=== PATIENT | female | born 1980 | race Caucasian/White ===

== ENCOUNTER 2017-05-08 17:49 | Emergency (ER) | payer SELFPAY ==
[2017-05-08] MEDS ORDERED: OXYCODONE-ACETAMINOPHEN 5-325 MG TABLET PO ONE (18:33)
--- NOTE | 2017-05-08 18:34 | ER Document Report ---
HPI - HPI Patient complains to provider of: Ankle injury Onset: This afternoon Onset/Duration: Sudden Quality of pain: Sharp Pain Level: 4 Context: Patient states that she was walking, slipped on wet grass and rolled her foot and ankle. Patient complains of left lateral ankle pain that radiates down into her foot. Associated Symptoms: Other - Left ankle and foot pain. denies: Vomiting Exacerbated by: Standing, Movement, Walking Relieved by: Denies Similar symptoms previously: No Recently seen / treated by doctor: No - ROS ROS below otherwise negative: Yes Systems Reviewed and Negative: Yes All other systems reviewed and negative - REPRODUCTIVE Reproductive: DENIES: : - MUSCULOSKELETAL Musculoskeletal: REPORTS: Extremity pain, Swelling - DERM Skin Color: Normal Skin Problems: None Past Medical History - General Information source: Patient - Social History Smoking Status: Current Every Day Smoker Occupation: None Lives with: Family Family History: Reviewed & Not Pertinent, CAD, Other - Bipolar disorder Patient has suicidal ideation: No Patient has homicidal ideation: No Renal/ Medical History: Denies: Hx Peritoneal Dialysis Psychiatric Medical History: Reports: Hx Anxiety, Hx Bipolar Disorder, Hx Post Traumatic Stress Disorder Surgical Hx: Negative - Immunizations Hx Diphtheria, Pertussis, Tetanus Vaccination: Yes Vertical Provider Document - CONSTITUTIONAL Agree With Documented VS: Yes Exam Limitations: No Limitations General Appearance: WD/WN, No Apparent Distress - INFECTION CONTROL TRAVEL OUTSIDE OF THE [place] IN LAST 30 DAYS: No - HEENT HEENT: Atraumatic, Normocephalic - NECK Neck: Normal Inspection - RESPIRATORY Respiratory: No Respiratory Distress O2 Sat by Pulse Oximetry: 99 - CARDIOVASCULAR Pulses: Normal: Posterior tibial, Dorsalis pedis - BACK Back: Normal Inspection - MUSCULOSKELETAL/EXTREMETIES Musculoskeletal/Extremeties: MAEW, Tender - Left ankle tenderness over lateral malleolar area with 1+ edema, left midfoot tenderness. negative: Eccymosis Notes: Normal Edmond squeeze test - NEURO Level of Consciousness: Awake, Alert, Appropriate Motor/Sensory: No Motor Deficit - DERM Integumentary: Warm, Dry, No Rash Course - Vital Signs Vital signs: Temp Pulse Resp BP Pulse Ox 97.9 F 101 H 16 105/89 H 99 05/08/17 18:03 05/08/17 18:03 05/08/17 18:03 05/08/17 18:03 05/08/17 18:03 - Diagnostic Test Radiology reviewed: Reports reviewed Procedures - Immobilization Left Ankle Pre-Proc Neuro Vasc Exam: Normal Immobilizer type: Ankle stirrup Performed by: PCT Post-Proc Neuro Vasc Exam: Normal Alignment checked and good: Yes Discharge - Discharge Clinical Impression: Left ankle sprain Qualifiers: Encounter type: initial encounter Involved ligament of ankle: unspecified ligament Qualified Code(s): S93.402A - Sprain of unspecified ligament of left ankle, initial encounter Foot sprain Qualifiers: Encounter type: initial encounter Laterality: left Qualified Code(s): S93.602A - Unspecified sprain of left foot, initial encounter Condition: Stable Disposition: HOME, SELF-CARE Instructions: Ice Packs ([facility]), Oral Narcotic Medication ([facility]), Sprain ([facility]), Sprained Ankle ([facility]) Additional Instructions: Return immediately for any new or worsening symptoms Followup with your primary care provider, call tomorrow to make a followup appointment Weightbearing as tolerated Follow-up with orthopedic doctor for any continued pain or problems Prescriptions: Naproxen [Naprosyn 250 Nmg Tablet] 1 tab PO BID #14 tablet Oxycodone HCl/Acetaminophen [Percocet 5-325 mg Tablet] 1 tab PO ASDIR PRN #10 tablet PRN Reason: Referrals: [facility] [Provider Group] - Follow up as needed
--- NOTE | 2017-05-08 18:58 | RADIOLOGY REPORT (SQ) ---
EXAM DESCRIPTION: ANKLE LEFT COMPLETE COMPLETED DATE/TIME: 05/08/2017 6:49 pm REASON FOR STUDY: slipped on wet grass, foot/ankle pain COMPARISON: None. NUMBER OF VIEWS: Three views. TECHNIQUE: AP, lateral, and oblique radiographic images acquired of the left ankle. LIMITATIONS: None. FINDINGS: MINERALIZATION: Normal. BONES: No acute fracture or dislocation. No worrisome bone lesions. JOINTS: No effusions. SOFT TISSUES: No soft tissue swelling. No foreign body. OTHER: No other significant finding. IMPRESSION: NEGATIVE STUDY OF THE LEFT ANKLE. NO RADIOGRAPHIC EVIDENCE OF ACUTE INJURY. TECHNICAL DOCUMENTATION: JOB ID: [id number] [employer] All Rights Reserved
--- NOTE | 2017-05-08 18:58 | RADIOLOGY REPORT (SQ) ---
EXAM DESCRIPTION: FOOT LEFT COMPLETE COMPLETED DATE/TIME: 05/08/2017 6:49 pm REASON FOR STUDY: slipped on wet grass, foot/ankle pain COMPARISON: None. NUMBER OF VIEWS: Three views. TECHNIQUE: AP, lateral and oblique radiographic images acquired of the left foot. LIMITATIONS: None. FINDINGS: MINERALIZATION: Normal. BONES: No acute fracture or dislocation. No worrisome bone lesions. JOINTS: No effusions. SOFT TISSUES: No soft tissue swelling. No foreign body. OTHER: No other significant finding. IMPRESSION: NEGATIVE STUDY OF THE LEFT FOOT. NO RADIOGRAPHIC EVIDENCE OF ACUTE INJURY. TECHNICAL DOCUMENTATION: JOB ID: [id number] [employer]- All Rights Reserved
[2017-05-08 19:58] VITALS: BP 132/88
== END 2017-05-08 19:59 | disposition home or self-care (01) ==
LOC: ER 17:49
PROC: 2W3RX1Z Immobilization of Left Lower Leg using Splint (ICD-10-PCS; principal; 2017-05-08)
DX: S93.402A Sprain of unspecified ligament of left ankle, initial encounter (principal); S93.602A Unspecified sprain of left foot, initial encounter; M25.572 Pain in left ankle and joints of left foot; W01.0XXA Fall on same level from slipping, tripping and stumbling without subsequent striking against object, initial encounter; F17.200 Nicotine dependence, unspecified, uncomplicated
CPT/HCPCS: 99283; 73610; 73630; 29515; L1902

== ENCOUNTER 2018-11-04 17:39 | Emergency (ER) | payer SELFPAY ==
[2018-11-04 17:46] VITALS: BP 152/81
--- NOTE | 2018-11-04 17:50 | ER Document Report ---
ED Medical Screen (RME) - General Chief Complaint: Foreign Body in Vagina Stated Complaint: FOREIGN OBJECT Time Seen by Provider: 11/04/18 17:44 Mode of Arrival: Ambulatory Information source: Patient Notes: Patient is an otherwise healthy 37-year-old female who presents the emergency department with possible retained foreign body in the vagina. Patient reports she put a tampon in last night and this morning when she went to take it out she states that she cannot feel the strings. Patient reports that she may have taken out in the middle of the night and forgotten but she wants to be sure. Patient has no abdominal pain, abnormal discharge or any symptoms today. Exam: Patient alert, oriented, calm and cooperative. I have greeted and performed a rapid initial assessment of this patient. A comprehensive ED assessment and evaluation of the patient, analysis of test results and completion of the medical decision making process will be conducted by additional ED providers. Dictation of this chart was performed using voice recognition software; therefore, there may be some unintended grammatical errors. TRAVEL OUTSIDE OF THE [place] IN LAST 30 DAYS: No - Related Data Allergies/Adverse Reactions: peanut [Peanut] Allergy (Verified 11/04/18 17:39) Penicillins Allergy (Verified 11/04/18 17:39) Past Medical History Renal/ Medical History: Denies: Hx Peritoneal Dialysis Psychiatric Medical History: Reports: Hx Anxiety, Hx Bipolar Disorder, Hx Post Traumatic Stress Disorder - Immunizations Hx Diphtheria, Pertussis, Tetanus Vaccination: Yes Physical Exam - Vital signs Vitals: Temp Pulse Resp BP Pulse Ox 98.5 F 84 14 152/81 H 97 11/04/18 17:44 11/04/18 17:44 11/04/18 17:44 11/04/18 17:44 11/04/18 17:44 Course - Vital Signs Vital signs: Temp Pulse Resp BP Pulse Ox 98.5 F 84 14 152/81 H 97 11/04/18 17:44 11/04/18 17:44 11/04/18 17:44 11/04/18 17:44 11/04/18 17:44
--- NOTE | 2018-11-04 18:24 | ER Document Report ---
HPI - HPI Patient complains to provider of: Questionable foreign body in the vagina Time Seen by Provider: 11/04/18 17:44 Onset: This morning Quality of pain: No pain Pain Level: 0 Context: Patient states she put a tampon in last night and she could not find the strings this morning. Patient is concerned that she may have a retained tampon in the vagina. Patient denies any pain or symptoms. Patient denies any concerns about STD. Associated Symptoms: None Exacerbated by: Denies Relieved by: Denies Similar symptoms previously: No Recently seen / treated by doctor: No - ROS ROS below otherwise negative: Yes Systems Reviewed and Negative: Yes All other systems reviewed and negative - CONSTITUTIONAL Constitutional: DENIES: Fever - REPRODUCTIVE Reproductive: DENIES: : - DERM Skin Color: Normal Skin Problems: None Past Medical History - General Information source: Patient - Social History Smoking Status: Current Every Day Smoker Chew tobacco use (# tins/day): No Frequency of alcohol use: Occasional Drug Abuse: None Occupation: None Family History: Reviewed & Not Pertinent, CAD, Other - Bipolar disorder Patient has suicidal ideation: No Patient has homicidal ideation: No Renal/ Medical History: Denies: Hx Peritoneal Dialysis Psychiatric Medical History: Reports: Hx Anxiety, Hx Bipolar Disorder, Hx Post Traumatic Stress Disorder Surgical Hx: Negative - Immunizations Hx Diphtheria, Pertussis, Tetanus Vaccination: Yes Vertical Provider Document - CONSTITUTIONAL Agree With Documented VS: Yes Exam Limitations: No Limitations General Appearance: WD/WN, No Apparent Distress - INFECTION CONTROL TRAVEL OUTSIDE OF THE [place] IN LAST 30 DAYS: No - HEENT HEENT: Atraumatic, Normocephalic - NECK Neck: Normal Inspection - RESPIRATORY Respiratory: No Respiratory Distress - GI/ABDOMEN Gastrointestinal: Abdomen Soft, Abdomen Non-Tender, No Organomegaly - REPRODUCTIVE Female Genitalia: negative: CMT, Adnexal Pain-Right, Adnexal Pain-Left Notes: Small amount of vaginal blood, no retained vaginal foreign body. No vaginal discharge. PCT Yanira is standby. - BACK Back: Normal Inspection - MUSCULOSKELETAL/EXTREMETIES Musculoskeletal/Extremeties: MAEW - NEURO Level of Consciousness: Awake, Alert, Appropriate Motor/Sensory: No Motor Deficit - DERM Integumentary: Warm, Dry, No Rash Course - Vital Signs Vital signs: Temp Pulse Resp BP Pulse Ox 98.5 F 84 14 152/81 H 97 11/04/18 17:44 11/04/18 17:44 11/04/18 17:44 11/04/18 17:44 11/04/18 17:44 Discharge - Discharge Clinical Impression: concern about vaginal foreign body, Normal exam Condition: Stable Disposition: HOME, SELF-CARE Instructions: Normal Exam and Workup ([facility]) Additional Instructions: Return immediately for any new or worsening symptoms Followup with your primary care provider, call tomorrow to make a followup appointment Referrals: [facility] [Provider Group] - Follow up as needed
== END 2018-11-04 18:54 | disposition home or self-care (01) ==
LOC: ER 17:39
DX: Z71.1 Person with feared health complaint in whom no diagnosis is made (principal); F17.200 Nicotine dependence, unspecified, uncomplicated
CPT/HCPCS: 99283

== ENCOUNTER 2019-02-18 21:41 | Emergency (ER) | payer SELFPAY ==
[2019-02-19] MEDS ORDERED: ASPIRIN 81 MG TABLET, CHEWABLE PO ONE (01:00)
[2019-02-19] MEDS ORDERED: ONDANSETRON 4 MG TAB.RAPDIS PO ONE (01:01)
[2019-02-19] MEDS ORDERED: ACETAMINOPHEN 325 MG TABLET PO ONE (01:03)
--- NOTE | 2019-02-19 01:03 | ER Document Report ---
ED Medical Screen (RME) - General Chief Complaint: Chest Pain Stated Complaint: CHEST PAIN Time Seen by Provider: 02/19/19 01:00 Mode of Arrival: Ambulatory Information source: Patient Notes: Patient presents complaining of chest pain for the past 3 days. Patient reports chronic cough. Patient does complain of pain with inspiration. Patient reports subjective fever at home today. Patient complains of nausea with diarrhea x4 episodes today. Patient also complains of an abscess to the buttocks. I have greeted and performed a rapid initial assessment of this patient. A comprehensive ED assessment and evaluation of the patient, analysis of test results and completion of the medical decision making process will be conducted by additional ED providers. TRAVEL OUTSIDE OF THE [place] IN LAST 30 DAYS: No - Related Data Allergies/Adverse Reactions: peanut [Peanut] Allergy (Verified 11/04/18 17:39) Penicillins Allergy (Verified 11/04/18 17:39) Past Medical History Renal/ Medical History: Denies: Hx Peritoneal Dialysis Psychiatric Medical History: Reports: Hx Anxiety, Hx Bipolar Disorder, Hx Post Traumatic Stress Disorder - Immunizations Hx Diphtheria, Pertussis, Tetanus Vaccination: Yes Physical Exam - Vital signs Vitals: Temp Pulse Resp BP Pulse Ox 99.4 F 109 H 16 125/78 97 02/18/19 21:53 02/18/19 21:53 02/18/19 21:53 02/18/19 21:53 02/18/19 21:53 - Respiratory Respiratory status: No respiratory distress Chest status: Nontender Breath sounds: Normal - Cardiovascular Rhythm: Tachycardia Heart sounds: S1 appreciated, S2 appreciated Course - Vital Signs Vital signs: Temp Pulse Resp BP Pulse Ox 99.4 F 109 H 16 125/78 97 02/18/19 21:53 02/18/19 21:53 02/18/19 21:53 02/18/19 21:53 02/18/19 21:53
[2019-02-19 01:31] LABS: ABSOLUTE BASOPHILS # (AUTO) 0.1 10^3/uL (0.0-0.2); ABSOLUTE EOSINOPHILS # (AUTO) 0.2 10^3/uL (0.0-0.6); ABSOLUTE LYMPHOCYTES (AUTO) 1.6 10^3/uL (0.5-4.7); ABSOLUTE NEUT (AUTO) 12.1 10^3/uL (1.7-8.2); BASOPHILS % (AUTO) 0.7 % (0-2); HEMATOCRIT 38.7 % (36.0-47.0); HEMOGLOBIN 13.1 g/dL (12.0-15.5); LYMPHOCYTES % (AUTO) 10.7 % (13-45); MEAN CORPUSCULAR HEMOGLOBIN 29.6 pg (27.0-33.4); MEAN CORPUSCULAR HGB CONC 33.9 g/dL (32.0-36.0); MEAN CORPUSCULAR VOLUME 87 fl (80-97); MONOCYTES % (AUTO) 6.5 % (3-13); PLATELET COUNT 337 10^3/uL (150-450); RED BLOOD COUNT 4.42 10^6/uL (3.72-5.28); RED CELL DISTRIBUTION WIDTH 13.5 % (11.5-14.0); SEGMENTED NEUTROPHILS % (AUTO) 81.1 % (42-78); TOTAL CELLS COUNTED % (AUTO) 100 %; WHITE BLOOD COUNT 14.9 10^3/uL (4.0-10.5)
[2019-02-19 01:35] LABS: APPEARANCE,URINE SLIGHTLY-CLOUDY; BILIRUBIN,URINE NEGATIVE (NEGATIVE); COLOR,URINE AMBER; GLUCOSE, URINE NEGATIVE (NEGATIVE); KETONES,URINE TRACE mg/dL (NEGATIVE); LEUKOCYTE ESTERASE,URINE NEGATIVE (NEGATIVE); NITRITE,URINE NEGATIVE (NEGATIVE); PROTEIN,URINE NEGATIVE (NEGATIVE); URINE SPECIFIC GRAVITY 1.028
[2019-02-19 01:53] LABS: ALANINE AMINOTRANSFERASE 201 U/L (9-52); ALBUMIN 3.7 g/dL (3.5-5.0); ALKALINE PHOSPHATASE 202 U/L (38-126); ANION GAP 10 (5-19); ASPARTATE AMINO TRANSFERASE 143 U/L (14-36); BILIRUBIN,DIRECT 0.3 mg/dL (0.0-0.4); BILIRUBIN,TOTAL 0.3 mg/dL (0.2-1.3); BLOOD UREA NITROGEN 11 mg/dL (7-20); CALCIUM 9.1 mg/dL (8.4-10.2); CARBON DIOXIDE 25 mmol/L (22-30); CHLORIDE 106 mmol/L (98-107); GLUCOSE 96 mg/dL (75-110); POTASSIUM 3.6 mmol/L (3.6-5.0); SODIUM 140.6 mmol/L (137-145); TOTAL PROTEIN 6.8 g/dL (6.3-8.2)
--- NOTE | 2019-02-19 01:53 | RADIOLOGY REPORT (SQ) ---
XR CHEST 2 VIEWS EXAM DATE: 02/19/2019 1:00 AM CDT HISTORY: Chest pain and cough. COMPARISON: None. FINDINGS: The heart size is within normal limits. No consolidation, pleural effusion, or pneumothorax is seen. The bony thorax is intact. IMPRESSION: No evidence of acute cardiopulmonary disease.
[2019-02-19] MEDS ORDERED: CLINDAMYCIN HCL 150 MG CAPSULE PO ONE (02:08)
--- NOTE | 2019-02-19 02:22 | ER Document Report ---
ED General - General Chief Complaint: Chest Pain Stated Complaint: CHEST PAIN Time Seen by Provider: 02/19/19 01:00 Mode of Arrival: Ambulatory TRAVEL OUTSIDE OF THE [place] IN LAST 30 DAYS: No - HPI Notes: Patient is a 38-year-old female who presents to the emergency department for evaluation. She has multiple complaints. She complains first of chest pain. She states is been there intermittently for the last 3 days. She describes it as a tightness that is present with some breaths, particularly deep ones. She describes it as a tightness, it is nonradiating. It is substernal. She states she has felt nauseated intermittently with this pain, but denies any other associated symptoms. Patient also states she has a "boil" on her left buttock. Is been present for the last several days as well. She states she has squeezed and a large amount of purulent material was expressed. She denies any salena fevers or chills. Again she is had some associated nausea with her chest pain, but no vomiting. Patient also states she is had some loose stools. - Related Data Allergies/Adverse Reactions: peanut [Peanut] Allergy (Verified 11/04/18 17:39) Penicillins Allergy (Verified 11/04/18 17:39) Past Medical History - General Information source: Patient - Social History Smoking Status: Current Every Day Smoker Chew tobacco use (# tins/day): No Frequency of alcohol use: None Drug Abuse: None Family History: Reviewed & Not Pertinent, CAD, Other - Bipolar disorder Patient has suicidal ideation: No Patient has homicidal ideation: No Renal/ Medical History: Denies: Hx Peritoneal Dialysis Psychiatric Medical History: Reports: Hx Anxiety, Hx Bipolar Disorder, Hx Post Traumatic Stress Disorder - Immunizations Hx Diphtheria, Pertussis, Tetanus Vaccination: Yes Review of Systems - Review of Systems Constitutional: See HPI EENT: No symptoms reported Cardiovascular: See HPI Respiratory: No symptoms reported Gastrointestinal: See HPI Genitourinary: No symptoms reported Female Genitourinary: No symptoms reported Skin: See HPI Neurological/Psychological: No symptoms reported Physical Exam - Vital signs Vitals: Temp Pulse Resp BP Pulse Ox 99.4 F 109 H 16 125/78 97 02/18/19 21:53 02/18/19 21:53 02/18/19 21:53 02/18/19 21:53 02/18/19 21:53 - Notes Notes: Vital signs reviewed, please refer to chart. Head is normocephalic, atraumatic. Pupils equal round, reactive to light. Neck is supple without meningismus. Heart is regular rate and rhythm. Lungs are clear to auscultation bilaterally. Abdomen is soft, nontender, normoactive bowel sounds throughout. Extremities without cyanosis, clubbing. Posterior calves are nontender. Peripheral pulses are equal. Skin is warm and dry. Semination of the left buttock yields an approximately 8 cm area of erythema with induration, on the inferior aspect of the buttock. No palpable abscess. It does not track down to the rectum. Patient is awake, alert, neurological exam is nonfocal. Course - Re-evaluation Re-evalutation: 02/19/19 02:20 Patient presents emergency department for evaluation. Laboratory investigations, imaging as ordered through triage. Laboratory investigations revealed a mild leukocytosis. Her cardiac enzymes are negative. Patient's chest pain is atypical in nature. Is not exertional. She has had symptoms long enough to rule out acute coronary syndrome. She was treated for cellulitis with clindamycin here. I will again send her home with a prescription for same. She is to follow-up with primary care, return to the ED with worsening or new concerning symptoms of any sort. - Vital Signs Vital signs: Temp Pulse Resp BP Pulse Ox 98.2 F 78 18 116/76 98 02/19/19 01:48 02/19/19 01:48 02/19/19 01:48 02/19/19 01:48 02/19/19 01:48 - Laboratory Result Diagrams: 02/19/19 01:10 02/19/19 01:10 Laboratory results interpreted by me: 02/19/19 02/19/19 02/19/19 01:10 01:10 01:10 WBC 14.9 H Seg Neutrophils % 81.1 H Lymphocytes % 10.7 L Absolute Neutrophils 12.1 H AST 143 H ALT 201 H Alkaline Phosphatase 202 H Urine Ketones TRACE H Urine Urobilinogen 2.0 H - Diagnostic Test Radiology reviewed: Reports reviewed Radiology results interpreted by me: 02/19/19 02:21 Chest X-Ray 02/19/19 01:00 IMPRESSION: No evidence of acute cardiopulmonary disease. - EKG Interpretation by Me Additional EKG results interpreted by me: 02/19/19 02:21 Sinus mechanism with a rate of 85 bpm. Normal axis and intervals, no acute ST changes concerning for ischemia or infarction. Discharge - Discharge Clinical Impression: Cellulitis of buttock, left Chest pain Qualifiers: Chest pain type: chest pain on breathing Qualified Code(s): R07.1 - Chest pain on breathing; R07.81 - Pleurodynia Condition: Stable Disposition: HOME, SELF-CARE Instructions: Chest Pain of Unclear Cause ([facility]), Cellulitis ([facility]) Additional Instructions: No clear cause was found for your chest pain today. Follow-up with primary care this week. Keep the infected area clean with soap and water. Frequent soaks. Take antibiotics as prescribed until gone, starting tomorrow morning. Return to the emergency department with worsening or new concerning symptoms of any sort. Referrals: [facility] [NO LOCAL MD] - Follow up as needed
[2019-02-19] MEDS ORDERED: ONDANSETRON 4 MG TAB.RAPDIS ONE (02:33)
[2019-02-19 03:15] VITALS: BP 106/64
--- NOTE | 2019-02-19 10:09 | EKG REPORT ---
SEVERITY:- NORMAL ECG - SINUS RHYTHM : Confirmed by: Jesus Manuel Toth MD 19-Feb-2019 10:08:19
== END 2019-02-19 03:13 | disposition home or self-care (01) ==
LOC: ER 21:41
DX: R07.1 Chest pain on breathing (principal); R11.0 Nausea; L03.317 Cellulitis of buttock; R19.4 Change in bowel habit; D72.829 Elevated white blood cell count, unspecified; F17.200 Nicotine dependence, unspecified, uncomplicated; Z91.010 Allergy to peanuts; Z88.0 Allergy status to penicillin; Z82.49 Family history of ischemic heart disease and other diseases of the circulatory system
CPT/HCPCS: 93005; 99285; 36415; 84703; 85025; 80053; 81001; 84484; 71046; 93010; S0119

== ENCOUNTER 2019-02-22 18:51 | Emergency (ER) | payer SELFPAY ==
[2019-02-22] MEDS ORDERED: NORMAL SALINE 1000 ML 1,000 ML IV PRN (20:10)
[2019-02-22] MEDS ORDERED: ACETAMINOPHEN 325 MG TABLET PO ONE (20:10)
[2019-02-22] MEDS ORDERED: VANCOMYCIN HCL 0 MG in DEXTROSE 5%-WATER 250 ML IV NR (20:15)
--- NOTE | 2019-02-22 20:16 | ER Document Report ---
ED Medical Screen (RME) - General Chief Complaint: Chest Pain Stated Complaint: SICK Time Seen by Provider: 02/22/19 19:56 Mode of Arrival: Wheelchair Information source: Patient Notes: Patient is a 38-year-old female who presents to the ER today for worsening cellulitis to the left buttock. Patient was seen here on the and placed on clindamycin which she is currently taking, states it is been getting worse and she has been draining pus from the buttock. She admits to feeling like having fever and chills but has not checked her temperature. She comes in diaphoretic and in mild acute distress. TRAVEL OUTSIDE OF THE [place] IN LAST 30 DAYS: No - Related Data Allergies/Adverse Reactions: peanut [Peanut] Allergy (Verified 02/22/19 18:52) Penicillins Allergy (Verified 02/22/19 18:52) Past Medical History - General Information source: Patient - Social History Chew tobacco use (# tins/day): No Frequency of alcohol use: None Drug Abuse: None Renal/ Medical History: Denies: Hx Peritoneal Dialysis Psychiatric Medical History: Reports: Hx Anxiety, Hx Bipolar Disorder, Hx Post Traumatic Stress Disorder - Immunizations Hx Diphtheria, Pertussis, Tetanus Vaccination: Yes Review of Systems - Review of Systems Constitutional: See HPI Skin: See HPI Physical Exam - Vital signs Vitals: Temp Pulse Resp BP Pulse Ox 97.3 F 129 H 16 144/103 H 100 02/22/19 19:21 02/22/19 19:21 02/22/19 19:21 02/22/19 19:21 02/22/19 19:21 - Notes Notes: PHYSICAL EXAMINATION: GENERAL: Diaphoretic, ill-appearing, moaning, in mild acute distress Cardiovascular: Tachycardic SKIN: Warm, Dry, normal turgor, limited due to no bed in room to fully evaluate, however the entire left buttock erythematous, large area of induration, bloody drainage on paper towel Course - Re-evaluation Re-evalutation: 02/22/19 20:32 Septic work-up started - Vital Signs Vital signs: Temp Pulse Resp BP Pulse Ox 97.3 F 129 H 16 144/103 H 100 02/22/19 19:21 02/22/19 19:21 02/22/19 19:21 02/22/19 19:21 02/22/19 19:21
[2019-02-22] MEDS ORDERED: NORMAL SALINE 1000 ML 3,000 ML IV ONE (20:33)
[2019-02-22 20:45] LABS: ABSOLUTE BASOPHILS # (AUTO) 0.1 10^3/uL (0.0-0.2); ABSOLUTE EOSINOPHILS # (AUTO) 0.2 10^3/uL (0.0-0.6); ABSOLUTE LYMPHOCYTES (AUTO) 2.4 10^3/uL (0.5-4.7); ABSOLUTE MONOCYTES (AUTO) 0.6 10^3/uL (0.1-1.4); ABSOLUTE NEUT (AUTO) 6.7 10^3/uL (1.7-8.2); BASOPHILS % (AUTO) 0.7 % (0-2); EOSINOPHILS % (AUTO) 1.9 % (0-6); HEMOGLOBIN 13.8 g/dL (12.0-15.5); MEAN CORPUSCULAR HEMOGLOBIN 29.7 pg (27.0-33.4); MEAN CORPUSCULAR HGB CONC 34.5 g/dL (32.0-36.0); MEAN CORPUSCULAR VOLUME 86 fl (80-97); PLATELET COUNT 447 10^3/uL (150-450); RED BLOOD COUNT 4.64 10^6/uL (3.72-5.28); RED CELL DISTRIBUTION WIDTH 13.7 % (11.5-14.0); SEGMENTED NEUTROPHILS % (AUTO) 67.4 % (42-78); TOTAL CELLS COUNTED % (AUTO) 100 %
[2019-02-22 21:05] LABS: ALANINE AMINOTRANSFERASE 209 U/L (9-52); ALBUMIN 3.8 g/dL (3.5-5.0); ALKALINE PHOSPHATASE 350 U/L (38-126); ANION GAP 15 (5-19); ASPARTATE AMINO TRANSFERASE 101 U/L (14-36); BILIRUBIN,DIRECT 0.2 mg/dL (0.0-0.4); BILIRUBIN,TOTAL 0.3 mg/dL (0.2-1.3); BLOOD UREA NITROGEN 7 mg/dL (7-20); CALCIUM 9.6 mg/dL (8.4-10.2); CARBON DIOXIDE 20 mmol/L (22-30); CHLORIDE 108 mmol/L (98-107); GLUCOSE 84 mg/dL (75-110); POTASSIUM 3.5 mmol/L (3.6-5.0); TOTAL PROTEIN 7.1 g/dL (6.3-8.2)
[2019-02-22] MEDS ORDERED: VANCOMYCIN HCL 2,000 MG in DEXTROSE 5%-WATER 500 ML IV ONE (22:00)
[2019-02-22] MEDS ORDERED: MORPHINE SULFATE 10 MG/ML INJ IV ONE (22:41)
--- NOTE | 2019-02-22 22:45 | ER Document Report ---
ED Cardiac - General Chief Complaint: Chest Pain Stated Complaint: SICK Time Seen by Provider: 02/22/19 19:56 Mode of Arrival: Wheelchair TRAVEL OUTSIDE OF THE [place] IN LAST 30 DAYS: No - HPI Notes: Patient is a 38-year-old female that presents to the emergency department for chief complaint of left gluteal cellulitis. Patient states that for the last 4 days she has been on clindamycin every 8 for left gluteal cellulitis. She states the area is becoming increasingly painful i n the area of swelling is getting bigger. Last night she had a large amount of purulent and bloody drainage from the area and reports to new "holes" that were draining. Patient reports that she has been sweaty but denies any fevers. She has been taking ibuprofen and Tylenol at home for pain but states it does not help much. She reports normal soft bowel movements without blood or purulence. She denies any abdominal pain or pain with bowel movements. Past Medical History: Negative Past Surgical History: Negative Social History: Daily tobacco. Denies alcohol or drug use Family History: Reviewed and noncontributory for presenting illness Allergies: Reviewed, see documented allergy list. REVIEW OF SYSTEMS: CONSTITUTIONAL : No fever No chills diaphoresis No recent illness EENT: No vision changes No congestion No sore throat CARDIOVASCULAR: No chest pain No palpitations RESPIRATORY: No shortness of breath No cough No difficulty breathing GASTROINTESTINAL: No abdominal pain No nausea No vomiting No diarrhea GENITOURINARY: No dysuria No hematuria No difficulty urinating MUSCULOSKELETAL: No back pain No leg pain No arm pain SKIN: No rashes Gluteal abscess LYMPHATIC: No swollen, enlarged glands. NEUROLOGICAL: No lightheadedness No headache No weakness No paresthesias PSYCHIATRIC: No anxiety No depression PHYSICAL EXAMINATION: Vital signs reviewed, nursing noted reviewed. GENERAL: Well-appearing, well-nourished and in no acute distress. HEAD: Atraumatic, normocephalic. EYES: Eyes appear normal, extraocular movements intact, sclera anicteric, conjunctiva are normal. ENT: nares patent, oropharynx clear without exudates. Moist mucous membranes. NECK: Normal range of motion, supple without lymphadenopathy LUNGS: Breath sounds clear to auscultation bilaterally and equal. No wheezes rales or rhonchi. HEART: Regular rate and rhythm without murmurs ABDOMEN: Soft, nontender, normoactive bowel sounds. No rebound, guarding, or rigidity. No masses appreciated. EXTREMITIES: Nontender, good range of motion, no pitting or edema. NEUROLOGICAL: No focal neurological deficits. Moves all extremities spontaneou sly Motor and sensory grossly intact on exam. PSYCH: Normal mood, normal affect. SKIN: Warm, Dry, normal turgor, area of induration on the left gluteus measuring 5 cm in width and 25 cm in length extending to left labia with small skin breakdown on the inferior portion, no active drainage. No tense fluctuant area, no crepitus. - Related Data Allergies/Adverse Reactions: peanut [Peanut] Allergy (Verified 02/22/19 18:52) Penicillins Allergy (Verified 02/22/19 18:52) Past Medical History - General Information source: Patient - Social History Smoking Status: Current Every Day Smoker Chew tobacco use (# tins/day): No Frequency of alcohol use: None Drug Abuse: None Family History: Reviewed & Not Pertinent, CAD, Other - Bipolar disorder Patient has suicidal ideation: No Patient has homicidal ideation: No Renal/ Medical History: Denies: Hx Peritoneal Dialysis Psychiatric Medical History: Reports: Hx Anxiety, Hx Bipolar Disorder, Hx Post Traumatic Stress Disorder - Immunizations Hx Diphtheria, Pertussis, Tetanus Vaccination: Yes Physical Exam - Vital signs Vitals: Temp Pulse Resp BP Pulse Ox 97.3 F 129 H 16 144/103 H 100 02/22/19 19:21 02/22/19 19:21 02/22/19 19:21 02/22/19 19:21 02/22/19 19:21 Course - Re-evaluation Re-evalutation: 02/22/19 22:44 Vitals reviewed. Nursing notes reviewed. Patient presented to the emergency ro om tachycardic with a heart rate of 130. She was ordered 3 L of IV fluid and vancomycin in triage. With IV fluids patient's heart rate has normalized. Lab work shows improvement of her WBC count. She has an elevated lactate at 2.4. Chart review shows the area affected on the measured about 8 cm and is now 25 x 5 cm. Patient is failing outpatient management and has a significant amount of cellulitis to her left gluteal and perineal region. CT scan will be ordered to evaluate for underlying abscess and perirectal involvement. Laboratory 02/22/19 02/22/19 02/22/19 20:10 20:10 20:10 WBC 10.0 RBC 4.64 Hgb 13.8 Hct 40.0 MCV 86 MCH 29.7 MCHC 34.5 RDW 13.7 Plt Count 447 Seg Neutrophils % 67.4 Lymphocytes % 24.0 Monocytes % 6.0 Eosinophils % 1.9 Basophils % 0.7 Absolute Neutrophils 6.7 Absolute Lymphocytes 2.4 Absolute Monocytes 0.6 Absolute Eosinophils 0.2 Absolute Basophils 0.1 Sodium 142.5 Potassium 3.5 L Chloride 108 H Carbon Dioxide 20 L Anion Gap 15 BUN 7 Creatinine 0.78 Est GFR ( Amer) > 60 Est GFR (Non-Af Amer) > 60 Glucose 84 Lactic Acid 2.4 H Calcium 9.6 Total Bilirubin 0.3 Direct Bilirubin 0.2 Neonat Total Bilirubin Not Reportable Neonat Direct Bilirubin Not Reportable Neonat Indirect Bili Not Reportable AST 101 H ALT 209 H Alkaline Phosphatase 350 H Total Protein 7.1 Albumin 3.8 02/23/19 00:29 On reevaluation patient states she is feeling much better. a notice she had told triage about chest pain which she had not initially said anything to me about, when I asked her about that she described as substernal chest tightness that lasts for 1 second and then completely goes away. She states it has been going on for the last 5 days and is unchanged from when she was seen previously. She is not currently having any chest pain. Her EKG is unchanged from last visit. I am not suspicious for ACS in this patient. She has no risk factors for PE and is not complaining of any shortness of breath, clinically I am not suspicious of pulmonary embolism. her tachycardia was related to dehydration and resolved with fluids. CT scan shows extensive left gluteal cellulitis without abscess or subcutaneous air. Patient does not have necrotizing fasciitis. She does not have any abscess requiring drainage. She is nontoxic in appearance. Her vital signs have normalized, current heart rate is 60. Patient has received 3 L of fluid in the emergency room and is not currently toxic or septic. Her antibiotics will be changed to Bactrim and Keflex which she will begin in the morning. Patient will follow for wound reevaluation in the next 1 to 2 days and will return for any new or worsening symptoms. Patient is in agreement with this plan of care. Pelvis CT 02/22/19 22:40 IMPRESSION: Extensive cellulitis involving the inferior medial left buttocks cutaneous fat. No evidence of abscess. 02/23/19 00:35 - Vital Signs Vital signs: Temp Pulse Resp BP Pulse Ox 97.3 F 129 H 16 144/103 H 100 02/22/19 19:21 02/22/19 19:21 02/22/19 19:21 02/22/19 19:21 02/22/19 19:21 - Laboratory Result Diagrams: 02/22/19 20:10 02/22/19 20:10 Laboratory results interpreted by me: 02/22/19 02/22/19 20:10 20:10 Potassium 3.5 L Chloride 108 H Carbon Dioxide 20 L Lactic Acid 2.4 H AST 101 H ALT 209 H Alkaline Phosphatase 350 H - EKG Interpretation by Me Additional EKG results interpreted by me: 02/23/19 00:33 Interpreted by myself 1915: Normal sinus rhythm, rate 93, normal axis, no ectopy, no STEMI Discharge - Discharge Clinical Impression: Cellulitis, gluteal, left Chest pain Qualifiers: Chest pain type: unspecified Qualified Code(s): R07.9 - Chest pain, unspecified Condition: Stable Disposition: HOME, SELF-CARE Instructions: Cellulitis ([facility]) Additional Instructions: Please return to the emergency department if you have any worsening, or concern of your symptoms. Please return to the emergency department if you develop chest pain, difficulty breathing, severe abdominal pain, or ongoing vomiting. Please follow-up with your primary care physician in 1-2 days and any other recommended physicians. If prescribed, take all medications as directed. If you have any questions or concerns do not hesitate to return the emergency department for evaluation. Wash the affected area 2-3 times a day with antibacterial soap if you are having Increasing amount of redness, swelling, pain or drainage return to the emergency room Prescriptions: Cephalexin Monohydrate [Keflex 500 mg Capsule] 500 mg PO BID 10 Days capsule Hydrocodone/Acetaminophen [[place] 5-325 mg Tablet] 1 tab PO Q6 #8 tablet Sulfamethoxazole/Trimethoprim [Bactrim Ds Tablet] 1 each PO BID #20 tablet Referrals: [facility] [Provider Group] - 02/25/19
--- NOTE | 2019-02-23 00:11 | RADIOLOGY REPORT (SQ) ---
CLINICAL HISTORY: left gluteal abscess. HCG NEG 02/19/19 COMPARISON: None. TECHNIQUE: CT PELVIS WITH IV CONTRAST on 02/22/2019 10:40 PM CDT This exam was performed according to our departmental dose-optimization program, which includes automated exposure control, adjustment of the mA and/or kV according to patient size and/or use of iterative reconstruction technique. FINDINGS: There is no bowel obstruction. Urinary bladder is unremarkable. There is no free fluid. Uterus is normal in size. Appendix is normal. There is extensive infiltration of the inferior and medial left buttocks subcutaneous fat. There is no associated abscess. Skeleton: There are no acute osseous findings. No suspicious bony lesions. IMPRESSION: Extensive cellulitis involving the inferior medial left buttocks cutaneous fat. No evidence of abscess.
[2019-02-23 01:16] VITALS: BP 103/59
== END 2019-02-23 01:13 | disposition home or self-care (01) ==
LOC: ER 18:51
DX: L03.317 Cellulitis of buttock (principal); R07.89 Other chest pain; E86.0 Dehydration; R00.0 Tachycardia, unspecified; R61 Generalized hyperhidrosis; F17.200 Nicotine dependence, unspecified, uncomplicated; Z91.010 Allergy to peanuts; Z88.0 Allergy status to penicillin
CPT/HCPCS: 99285; 36415; 87040; 80053; 83605; 72193; J2270; J7060; J7030; J3370